=== PATIENT | male | born 1980 | race Caucasian/White ===

== ENCOUNTER 2018-09-25 14:45 | Emergency (ER) | payer OTHER, BC ==
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
== END 2018-09-25 15:40 | disposition home or self-care (01) ==
LOC: DL.ED 14:45
DX: S46.001A Unspecified injury of muscle(s) and tendon(s) of the rotator cuff of right shoulder, initial encounter (principal); Y99.0 Civilian activity done for income or pay; Z91.013 Allergy to seafood; X50.0XXA Overexertion from strenuous movement or load, initial encounter
CPT/HCPCS: 73030-RT; 99283-25